=== PATIENT | female | born 1925 | race Caucasian/White ===

== ENCOUNTER → 2016-05-18 | Outpatient (CLI) | payer OTHER, MEDICAID ==
--- NOTE | 2016-05-18 11:32 | DX ---
Chest, PA and Lateral History: Dyspnea, suspect congestive heart failure Findings: Although the heart is enlarged the pulmonary vascularity is not plethoric and the azygos ve in is not dilated. There is bibasilar consolidation associated with pleural effusion suspicious for p neumonia. There is a prominent kyphosis with multiple thoracic mild compressions between T4 and T10. There is atherosclerotic calcification of the aorta. Impression: 1. Suspect bibasilar pneumonia. 2. Osteoporosis? Consider DEXA scanning for further evaluation. A message was left for Dr. Ernandez.
== END ==
LOC: GIMAGING 10:07
PROVIDERS: ATTEND Internal Medicine
DX: R06.02 Shortness of breath (principal)
CPT/HCPCS: 71020-PO